=== PATIENT | female | born 1980 | race Two or more races ===

== ENCOUNTER 2018-02-28 22:53 | Emergency (ER) | payer OTHER ==
[~2018-02-28] VITALS: Ht 167.6 cm; Wt 97.5 kg
[2018-03-01] MEDS ORDERED: SYNTHROID150 MCG PO (00:20)
[2018-03-01] MEDS ORDERED: DOLOGESIC 500-1 EACH PO (03:15)
== END 2018-03-01 03:25 | disposition home or self-care (01) ==
LOC: ER 22:53
DX: B34.9 Viral infection, unspecified (principal)